=== PATIENT | male | born 1950 | race Caucasian/White ===

== ENCOUNTER 2016-11-14 14:04 | Outpatient (CLI) | payer MEDICARE, OTHER ==
--- NOTE | 2016-11-14 16:28 | XRAY Report ---
TWO VIEW CHEST: 11/14/2016 CLINICAL INDICATION: Pneumonia. FINDINGS: Frontal and lateral views of the chest demonstrate a normal cardiac silhouette. There is a left lower lobe infiltrate present. No effusion or pneumothorax is seen. IMPRESSION: LEFT LOWER LOBE INFILTRATE. JOB #: [id number] EXT JOB #:[id number]
== END 2016-11-14 14:05 | disposition home or self-care (01) ==
LOC: DI.S 14:04
PROVIDERS: ATTEND Family Medicine
DX: R91.8 Other nonspecific abnormal finding of lung field (principal)
CPT/HCPCS: 71020

== ENCOUNTER 2016-12-15 13:52 | Outpatient (CLI) | payer OTHER ==
--- NOTE | 2016-12-16 12:13 | XRAY Report ---
TWO-VIEW CHEST: 12/15/2016 CLINICAL INDICATION: Left lower lobe pneumonia followup. COMPARISON: 11/14/2016 FINDINGS: Frontal and lateral views of the chest demonstrate a normal cardiac silhouette. Previousl y seen left basilar infiltrate has almost completely resolved, with residual linear scarring or atele ctasis now present. No effusion or pneumothorax is seen. IMPRESSION: RESIDUAL LINEAR SCARRING OR ATELECTASIS AT THE LEFT BASE. NEAR COMPLETE CLEARING OF PRE VIOUSLY SEEN LEFT LOWER LOBE INFILTRATE. JOB #: [id number] EXT JOB #:[id number]
== END 2016-12-15 13:53 | disposition home or self-care (01) ==
LOC: DI.S 13:52
PROVIDERS: ATTEND Family Medicine
DX: J18.9 Pneumonia, unspecified organism (principal)
CPT/HCPCS: 71020